=== PATIENT | male | born 1940 | race Caucasian/White ===

== ENCOUNTER → 2016-10-21 | Outpatient (CLI) | payer MEDICARE, OTHER | END | disposition home or self-care (01) | LOC: RAD 09:28 | DX: M51.36 Other intervertebral disc degeneration, lumbar region (principal); M43.16 Spondylolisthesis, lumbar region; M48.06 Spinal stenosis, lumbar region; M47.894 Other spondylosis, thoracic region; M51.04 Intervertebral disc disorders with myelopathy, thoracic region ==

== ENCOUNTER → 2016-10-26 | Outpatient (CLI) | payer MEDICARE, OTHER ==
[2016-10-26] VITALS (8 sets, daily range): BP systolic 150–185; BP diastolic 71–86
[~2016-10-26] MED LIST: 'TENORMIN50 MG PO; MOBIC7.5 MG PO; ULTRAM50 MG PO
[2016-10-26 11:43] LABS: PROTHROMBIN TIME 10.7 SECONDS (9.0-12.4)
== END | disposition home or self-care (01) ==
LOC: CT 10-18 10:00 → LAB 03:27
PROVIDERS: Orthopaedic Surgery
DX: M51.26 Other intervertebral disc displacement, lumbar region (principal); M62.58 Muscle wasting and atrophy, not elsewhere classified, other site; R53.1 Weakness; M25.551 Pain in right hip; M79.651 Pain in right thigh; M47.896 Other spondylosis, lumbar region

== ENCOUNTER → 2016-11-08 | Outpatient (CLI) | payer MEDICARE, OTHER ==
[2016-11-08 10:13] LABS: BUN 6 mg/dl (7-24); EST GLOM FILT AFRICAN AMERICAN > 60 ml/min
== END | disposition home or self-care (01) ==
LOC: LAB
PROVIDERS: Orthopaedic Surgery
DX: Z01.818 Encounter for other preprocedural examination (principal)

== ENCOUNTER → 2016-11-11 | Outpatient (CLI) | payer MEDICARE, OTHER | END | disposition home or self-care (01) | LOC: MRI 02:55 | DX: M51.26 Other intervertebral disc displacement, lumbar region (principal); R53.1 Weakness; M25.551 Pain in right hip; M79.651 Pain in right thigh ==

== ENCOUNTER 2016-12-24 15:08 | Emergency (ER) | payer MEDICARE, OTHER ==
[~2016-12-24] VITALS: Wt 71.2 kg
[2016-12-24 16:39] LABS: BASO % 0.3 % (0.0-1.0); EOS # 0.2 10*3/uL (0.0-0.4); EOS % 1.9 % (1.0-4.0); HEMATOCRIT 43.7 % (42.0-52.0); HEMOGLOBIN 15.3 g/dl (14.0-18.0); LYMPH # 2.1 10*3/uL (1.3-4.4); LYMPH % 19.4 % (27.0-41.0); MEAN CELL VOLUME 90.9 fl (80.0-94.0); MEAN CORPUSCULAR HGB 31.8 pg (27.0-31.0); MEAN PLATELET VOLUME 9.9 fl (9.6-12.3); MONO # 0.6 10*3/uL (0.1-1.0); MONO % 5.8 % (3.0-9.0); NEUT % 72.2 % (47.0-73.0); PLATELET COUNT AUTOMATED 222 10*3/uL (130-400); RED BLOOD COUNT 4.81 10*6/uL (4.50-5.90); RED CELL DISTRI WIDTH 13.2 % (0-14.5)
[2016-12-24 16:58] LABS: ALBUMIN 3.8 gm/dl (3.1-4.5); ALKALINE PHOSPHATASE 52 U/L (45-117); BUN 14 mg/dl (7-24); CHLORIDE 103 mmol/L (98-107); CREATININE 0.84 mg/dL (0.70-1.30); MAGNESIUM 2.1 mg/dL (1.5-2.1); POTASSIUM 4.1 mmol/L (3.5-5.1); SGOT/AST 17 IU/L (3-35); SGPT/ALT 23 U/L (12-78); SODIUM 138 mmol/L (136-145); TOTAL PROTEIN 6.8 gm/dL (6.4-8.2)
[2016-12-24 16:59] LABS: TROPONIN I 0.038 ng/ml (<0.045)
[2016-12-24] MEDS ORDERED: FLONASE ALLERG9.9 ML NAS (18:07)
[2016-12-24] MEDS ORDERED: CLARITIN10 MG PO (18:07)
[2016-12-24] MEDS ORDERED: PREDNISONE10 MG PO (18:07)
[2016-12-24] MEDS ORDERED: ROBITUSSIN DM 105 ML PO (18:07)
== END 2016-12-24 20:08 | disposition home or self-care (01) ==
LOC: ED 15:08
PROVIDERS: Nurse Practitioner Family
DX: B34.9 Viral infection, unspecified (principal); R03.0 Elevated blood-pressure reading, without diagnosis of hypertension; J02.9 Acute pharyngitis, unspecified; Z79.899 Other long term (current) drug therapy

== ENCOUNTER → 2018-01-17 | Outpatient (CLI) | payer MEDICARE, OTHER ==
[~2018-01-17] MED LIST changes: +CLARITIN10 MG PO; +FLONASE ALLERG9.9 ML NAS; +PREDNISONE10 MG PO; +ROBITUSSIN DM 105 ML PO
== END | disposition home or self-care (01) ==
LOC: RAD 12:17
DX: J44.9 Chronic obstructive pulmonary disease, unspecified (principal)

== ENCOUNTER → 2018-12-06 | Outpatient (CLI) | payer MEDICARE, OTHER ==
[2018-12-06 11:49] LABS: BASO # 0.1 10*3/uL (0.0-0.1); BASO % 0.6 % (0.0-1.0); EOS # 0.2 10*3/uL (0.0-0.4); HEMATOCRIT 44.5 % (42.0-52.0); LYMPH # 1.6 10*3/uL (1.3-4.4); LYMPH % 17.1 % (27.0-41.0); MEAN CORPUSCULAR HGB 30.7 pg (27.0-31.0); MEAN CORPUSCULAR HGB CONC 33.7 g/dl (33.0-37.0); MEAN PLATELET VOLUME 10.7 fl (9.6-12.3); MONO # 0.5 10*3/uL (0.1-1.0); MONO % 5.5 % (3.0-9.0); NEUT % 74.5 % (47.0-73.0); PLATELET COUNT AUTOMATED 246 10*3/uL (130-400); RED BLOOD COUNT 4.89 10*6/uL (4.50-5.90); RED CELL DISTRI WIDTH 14.6 % (0-14.5); WHITE BLOOD COUNT 9.4 10*3/uL (4.8-10.8)
[2018-12-06 12:20] LABS: ALBUMIN 3.9 gm/dl (3.1-4.5); ALKALINE PHOSPHATASE 55 U/L (45-117); BUN 11 mg/dl (7-24); CHLORIDE 107 mmol/L (98-107); CHOLESTEROL 166 mg/dL (<200); CREATININE 0.81 mg/dL (0.70-1.30); FREE T4 1.04 ng/dl (0.76-1.46); HDL CHOLESTEROL 79 mg/dl (40-60); LDL CHOLESTEROL 76 mg/dL (9-159); POTASSIUM 3.8 mmol/L (3.5-5.1); SGOT/AST 14 IU/L (3-35); SGPT/ALT 15 U/L (12-78); SODIUM 140 mmol/L (136-145); TOTAL PROTEIN 6.7 gm/dL (6.4-8.2); TRIGLYCERIDES 56 mg/dl (<150); VLDL CHOLESTEROL 11 mg/dL (6-40)
[2018-12-06 12:38] LABS: VITAMIN D, 25-HYDROXY 65.8 ng/mL (30-100)
== END | disposition home or self-care (01) ==
LOC: LAB 10:38
PROVIDERS: Internal Medicine
DX: E78.2 Mixed hyperlipidemia (principal); E55.9 Vitamin D deficiency, unspecified; D52.9 Folate deficiency anemia, unspecified; D51.9 Vitamin B12 deficiency anemia, unspecified; I10 Essential (primary) hypertension

== ENCOUNTER → 2019-06-05 | Outpatient (CLI) | payer MEDICARE, OTHER ==
[2019-06-05 15:39] LABS: BASO # 0.1 10*3/uL (0.0-0.1); BASO % 0.5 % (0.0-1.0); EOS # 0.2 10*3/uL (0.0-0.4); EOS % 1.6 % (1.0-4.0); HEMATOCRIT 48.6 % (42.0-52.0); LYMPH % 17.5 % (27.0-41.0); MEAN CELL VOLUME 93.1 fl (80.0-94.0); MEAN CORPUSCULAR HGB 30.7 pg (27.0-31.0); MEAN CORPUSCULAR HGB CONC 32.9 g/dl (33.0-37.0); MEAN PLATELET VOLUME 10.4 fl (9.6-12.3); MONO # 0.6 10*3/uL (0.1-1.0); MONO % 4.8 % (3.0-9.0); NEUT # 8.7 10*3/uL (2.3-7.9); NEUT % 75.1 % (47.0-73.0); PLATELET COUNT AUTOMATED 252 10*3/uL (130-400); RED BLOOD COUNT 5.22 10*6/uL (4.50-5.90); RED CELL DISTRI WIDTH 13.6 % (0-14.5); WHITE BLOOD COUNT 11.6 10*3/uL (4.8-10.8)
[2019-06-05 16:08] LABS: BILIRUBIN NEGATIVE (NEGATIVE); BLOOD NEGATIVE (NEGATIVE); CLARITY CLEAR (CLEAR); COLOR YELLOW (YELLOW); EPITHELIAL CELLS 0-2; GLUCOSE NEGATIVE (NEGATIVE); KETONE NEGATIVE (NEGATIVE); LEUKO ESTERASE NEGATIVE (NEGATIVE); NITRITE NEGATIVE (NEGATIVE); PH 6.5 (5.0-9.0); SPECIFIC GRAVITY 1.005 (1.005-1.030); UROBILINOGEN 0.2 E.U./dl (0.2-1.0)
[2019-06-05 16:19] LABS: ALBUMIN 4.3 gm/dl (3.1-4.5); ALKALINE PHOSPHATASE 56 U/L (45-117); BUN 10 mg/dl (7-24); CHLORIDE 106 mmol/L (98-107); CREATININE 0.96 mg/dL (0.70-1.30); POTASSIUM 3.9 mmol/L (3.5-5.1); SGOT/AST 21 IU/L (3-35); SGPT/ALT 21 U/L (12-78); SODIUM 141 mmol/L (136-145)
== END | disposition home or self-care (01) ==
LOC: LAB 15:03
PROVIDERS: Nurse Practitioner Family
DX: Z12.5 Encounter for screening for malignant neoplasm of prostate (principal); I10 Essential (primary) hypertension; D40.0 Neoplasm of uncertain behavior of prostate; R53.83 Other fatigue

== ENCOUNTER → 2019-06-19 | Outpatient (CLI) | payer MEDICARE, OTHER | END | disposition home or self-care (01) | LOC: US 11:57 | DX: N28.89 Other specified disorders of kidney and ureter (principal) ==

== ENCOUNTER → 2019-07-03 | Outpatient (CLI) | payer MEDICARE, OTHER | END | disposition home or self-care (01) | LOC: CT 00:20 | DX: N20.0 Calculus of kidney (principal); K59.00 Constipation, unspecified; M41.86 Other forms of scoliosis, lumbar region ==

== ENCOUNTER → 2019-07-11 | Outpatient (CLI) | payer MEDICARE, OTHER ==
[2019-07-13 14:07] LABS: CREATININE, RANDOM URINE 33.9 mg/dL (Not Estab.)
[2019-07-13 22:02] LABS: METANEPHRINE, PLASMA <10 pg/mL (0-62)
[2019-07-15 10:04] LABS: VMA RANDOM 1.6 mg/L (Undefined)
[2019-07-16 13:31] LABS: NORMETANEPHRINE, PLASMA 53 pg/mL (0-145)
== END | disposition home or self-care (01) ==
LOC: LAB 10:36
PROVIDERS: Nurse Practitioner Family
DX: E27.9 Disorder of adrenal gland, unspecified (principal)

== ENCOUNTER → 2019-07-13 | Outpatient (CLI) | payer MEDICARE, OTHER ==
[2019-07-17 08:03] LABS: NORMETANEPHRINE URINE 202 ug/L (Undefined); URINE METANEPHRINE 148 ug/L (Undefined); URINE METANEPHRINE, 24 HR 340 ug/24 hr (45-290); URINE NORMETANEPHRINE 24HR 465 ug/24 hr (82-500)
== END | disposition home or self-care (01) ==
LOC: LAB 09:13
PROVIDERS: Nurse Practitioner Family
DX: E27.9 Disorder of adrenal gland, unspecified (principal)

== ENCOUNTER → 2019-09-10 | Outpatient (CLI) | payer MEDICARE, OTHER | END | disposition home or self-care (01) | LOC: CT 12:24 | DX: I67.82 Cerebral ischemia (principal); I65.23 Occlusion and stenosis of bilateral carotid arteries ==

== ENCOUNTER → 2019-09-19 | Outpatient (CLI) | payer MEDICARE, OTHER | END | disposition home or self-care (01) | LOC: RAD 12:23 | DX: M17.11 Unilateral primary osteoarthritis, right knee (principal); M85.861 Other specified disorders of bone density and structure, right lower leg; M70.61 Trochanteric bursitis, right hip; Z96.641 Presence of right artificial hip joint ==

== ENCOUNTER → 2020-01-16 | Outpatient (CLI) | payer MEDICARE, OTHER ==
[2020-01-16 15:52] LABS: BASO # 0.1 10*3/uL (0.0-0.1); BASO % 0.7 % (0.0-1.0); EOS # 0.2 10*3/uL (0.0-0.4); EOS % 2.2 % (1.0-4.0); HEMATOCRIT 43.4 % (42.0-52.0); LYMPH % 19.4 % (27.0-41.0); MEAN CELL VOLUME 93.5 fl (80.0-94.0); MEAN CORPUSCULAR HGB 30.6 pg (27.0-31.0); MEAN CORPUSCULAR HGB CONC 32.7 g/dl (33.0-37.0); MEAN PLATELET VOLUME 11.2 fl (9.6-12.3); MONO # 0.7 10*3/uL (0.1-1.0); MONO % 6.7 % (3.0-9.0); NEUT # 7.1 10*3/uL (2.3-7.9); NEUT % 70.5 % (47.0-73.0); PLATELET COUNT AUTOMATED 249 10*3/uL (130-400); RED BLOOD COUNT 4.64 10*6/uL (4.50-5.90); RED CELL DISTRI WIDTH 13.9 % (0-14.5); WHITE BLOOD COUNT 10.1 10*3/uL (4.8-10.8)
[2020-01-16 16:22] LABS: ALBUMIN 3.8 gm/dl (3.1-4.5); BUN 11 mg/dl (7-24); CHLORIDE 108 mmol/L (98-107); HDL CHOLESTEROL 69 mg/dl (40-60); POTASSIUM 4.1 mmol/L (3.5-5.1); SODIUM 142 mmol/L (136-145)
[2020-01-16 16:29] LABS: VITAMIN D, 25-HYDROXY 27.9 ng/mL (30-100)
[2020-01-16 16:31] LABS: ALKALINE PHOSPHATASE 52 U/L (45-117); CHOLESTEROL 153 mg/dL (<200); CREATININE 0.85 mg/dL (0.70-1.30); FREE T4 1.17 ng/dl (0.76-1.46); LDL CHOLESTEROL 51 mg/dL (9-159); SGOT/AST 15 IU/L (3-35); SGPT/ALT 18 U/L (12-78); TOTAL PROTEIN 6.4 gm/dL (6.4-8.2); TRIGLYCERIDES 167 mg/dl (<150); VLDL CHOLESTEROL 33 mg/dL (6-40)
== END | disposition home or self-care (01) ==
LOC: LAB 13:37
PROVIDERS: ATTEND Internal Medicine
DX: Z00.00 Encounter for general adult medical examination without abnormal findings (principal); I10 Essential (primary) hypertension; E78.2 Mixed hyperlipidemia; E55.9 Vitamin D deficiency, unspecified

== ENCOUNTER 2020-03-22 09:43 | Emergency (ER) | payer MEDICARE, OTHER ==
[2020-03-22 10:47] LABS: BASO # 0.1 10*3/uL (0.0-0.1); BASO % 0.5 % (0.0-1.0); EOS # 0.2 10*3/uL (0.0-0.4); EOS % 1.9 % (1.0-4.0); HEMATOCRIT 46.1 % (42.0-52.0); LYMPH # 1.3 10*3/uL (1.3-4.4); LYMPH % 11.6 % (27.0-41.0); MEAN CELL VOLUME 90.9 fl (80.0-94.0); MEAN CORPUSCULAR HGB 30.2 pg (27.0-31.0); MEAN CORPUSCULAR HGB CONC 33.2 g/dl (33.0-37.0); MEAN PLATELET VOLUME 10.3 fl (9.6-12.3); MONO # 0.5 10*3/uL (0.1-1.0); NEUT # 8.7 10*3/uL (2.3-7.9); NEUT % 80.6 % (47.0-73.0); PLATELET COUNT AUTOMATED 304 10*3/uL (130-400); RED BLOOD COUNT 5.07 10*6/uL (4.50-5.90); RED CELL DISTRI WIDTH 13.5 % (0-14.5); WHITE BLOOD COUNT 10.8 10*3/uL (4.8-10.8)
[2020-03-22 11:14] LABS: BILIRUBIN Negative (Negative); BLOOD Negative (Negative); CLARITY Clear (Clear); COLOR Yellow (Yellow); GLUCOSE Negative (Negative); KETONE Negative (Negative); LEUKO ESTERASE Negative (Negative); NITRITE Negative (Negative); PH 7.5 (4.5-8.0); SPECIFIC GRAVITY <= 1.005 (1.001-1.030); UROBILINOGEN 0.2 E.U./dl (0.0-1.0)
[2020-03-22 11:15] LABS: ALBUMIN 3.7 gm/dl (3.1-4.5); ALKALINE PHOSPHATASE 99 U/L (45-117); BUN 11 mg/dl (7-24); CHLORIDE 108 mmol/L (98-107); CREATININE 0.83 mg/dL (0.70-1.30); LIPASE 91 U/L (73-393); SGOT/AST 17 IU/L (3-35); SGPT/ALT 17 U/L (12-78); SODIUM 140 mmol/L (136-145); TOTAL PROTEIN 6.9 gm/dL (6.4-8.2)
[2020-03-22 11:16] LABS: TROPONIN I 0.024 ng/ml (<0.045)
[2020-03-22 11:22] LABS: EPITHELIAL CELLS 0-2
[2020-03-22 11:22] LABS: THYROID STIM HORMONE (HS) 0.977 uIU/ml (0.358-4.75)
[2020-03-22] MEDS ORDERED: LEVOFLOXACIN500 MG PO (13:21)
== END 2020-03-22 13:30 | disposition home or self-care (01) ==
LOC: ED 09:43
PROVIDERS: Physician Assistant
DX: J18.9 Pneumonia, unspecified organism (principal); M79.651 Pain in right thigh; I10 Essential (primary) hypertension; M06.9 Rheumatoid arthritis, unspecified; F17.200 Nicotine dependence, unspecified, uncomplicated; Z79.899 Other long term (current) drug therapy; Z96.641 Presence of right artificial hip joint

== ENCOUNTER → 2020-03-25 | Outpatient (CLI) | payer MEDICARE, OTHER ==
[~2020-03-25] MED LIST changes: +LEVOFLOXACIN500 MG PO
== END | disposition home or self-care (01) ==
LOC: COVID19 11:15
PROVIDERS: ATTEND Internal Medicine
DX: Z20.828 Contact with and (suspected) exposure to other viral communicable diseases (principal)

== ENCOUNTER → 2020-04-07 | Outpatient (CLI) | payer MEDICARE, OTHER | END | disposition home or self-care (01) | LOC: RAD 10:24 | PROVIDERS: ATTEND Internal Medicine | DX: J18.9 Pneumonia, unspecified organism (principal); M47.814 Spondylosis without myelopathy or radiculopathy, thoracic region; M48.50XA Collapsed vertebra, not elsewhere classified, site unspecified, initial encounter for fracture ==

== ENCOUNTER → 2020-07-03 | Outpatient (CLI) | payer MEDICARE, OTHER ==
[~2020-07-03] MED LIST changes: +ESCITALOPRAM OX10 MG PO; +LISINOPRIL5 MG PO; +NAPROXEN500 MG PO
== END | disposition home or self-care (01) ==
LOC: RAD 09:43
PROVIDERS: ATTEND Internal Medicine
DX: M17.11 Unilateral primary osteoarthritis, right knee (principal)

== ENCOUNTER 2020-08-03 18:44 | Inpatient (IN) | payer MEDICARE, OTHER ==
[~2020-08-03] VITALS: Ht 167.6 cm; Wt 62.7 kg
[~2020-08-03 18:44] MED LIST changes: -ESCITALOPRAM OX10 MG PO; -LISINOPRIL5 MG PO; -NAPROXEN500 MG PO
[2020-08-03 19:16] VITALS: BP 175/66
[2020-08-03 21:24] VITALS: BP 123/61
[2020-08-04 01:12] LABS: HEMATOCRIT 45.7 % (42.0-52.0); MEAN CELL VOLUME 92.3 fl (80.0-94.0); MEAN CORPUSCULAR HGB 30.7 pg (27.0-31.0); MEAN CORPUSCULAR HGB CONC 33.3 g/dl (33.0-37.0); MEAN PLATELET VOLUME 9.9 fl (9.6-12.3); PLATELET COUNT AUTOMATED 259 10*3/uL (130-400); RED BLOOD COUNT 4.95 10*6/uL (4.50-5.90); RED CELL DISTRI WIDTH 13.9 % (0-14.5)
[2020-08-04 01:29] LABS: ALBUMIN 3.9 gm/dl (3.1-4.5); ALKALINE PHOSPHATASE 121 U/L (45-117); BUN 15 mg/dl (7-24); CHLORIDE 102 mmol/L (98-107); CREATININE 0.82 mg/dL (0.70-1.30); POTASSIUM 4.8 mmol/L (3.5-5.1); SGOT/AST 23 IU/L (3-35); SGPT/ALT 21 U/L (12-78); SODIUM 136 mmol/L (136-145); TOTAL PROTEIN 7.2 gm/dL (6.4-8.2)
[2020-08-04 02:12] LABS: PLATELET SUFFICIENCY NORMAL (NORMAL); TOTAL CELLS COUNTED 100 #CELLS
[2020-08-04 02:13] LABS: BURR CELLS FEW
[2020-08-04 05:02] VITALS: BP 163/62
[2020-08-04 06:27] VITALS: BP 164/74
[2020-08-04] MEDS ORDERED: LISINOPRIL5 MG PO (06:29)
[2020-08-04] MEDS ORDERED: NAPROXEN500 MG PO (06:29)
[2020-08-04] MEDS ORDERED: ESCITALOPRAM OX10 MG PO (06:31)
[2020-08-04 12:00] VITALS: BP 148/65
[2020-08-04 20:00] VITALS: BP 163/68
[2020-08-05] VITALS: BP 156/75
[2020-08-05 08:05] VITALS: BP 159/69
[2020-08-05 12:29] VITALS: BP 170/67
[2020-08-05 13:40] VITALS: BP 158/62
[2020-08-05 16:29] VITALS: BP 180/75
[2020-08-05 20:00] VITALS: BP 176/75
[2020-08-06] VITALS: BP 180/74
[2020-08-06 08:43] VITALS: BP 170/82
[2020-08-06 12:17] VITALS: BP 174/65
[2020-08-06 16:35] VITALS: BP 112/61
[2020-08-06 20:00] VITALS: BP 148/80
[2020-08-07 08:00] VITALS: BP 179/82
[2020-08-07 16:00] VITALS: BP 168/77
[2020-08-08] MEDS ORDERED: HYDROCODONE-AC1 EAC1 PO (15:51)
== END 2020-08-07 17:55 | DRG 552 ==
LOC: ED 18:44 → EDHOLD 08-04 04:07 → 5E 08-04 04:07 → EDHOLD 08-04 04:07 → 5E 08-04 08:47
PROVIDERS: Physician Assistant; ADMIT Internal Medicine; ATTEND Internal Medicine
DX: M48.56XS Collapsed vertebra, not elsewhere classified, lumbar region, sequela of fracture (principal); F33.9 Major depressive disorder, recurrent, unspecified; M19.90 Unspecified osteoarthritis, unspecified site; I10 Essential (primary) hypertension; Z82.49 Family history of ischemic heart disease and other diseases of the circulatory system; S30.0XXA Contusion of lower back and pelvis, initial encounter; M19.09 Primary osteoarthritis, other specified site; R62.7 Adult failure to thrive; M48.061 Spinal stenosis, lumbar region without neurogenic claudication; Z20.822 Contact with and (suspected) exposure to COVID-19; Z68.22 Body mass index [BMI] 22.0-22.9, adult; M06.9 Rheumatoid arthritis, unspecified; X58.XXXA Exposure to other specified factors, initial encounter; Y93.89 Activity, other specified; Y92.89 Other specified places as the place of occurrence of the external cause; Y99.8 Other external cause status

== ENCOUNTER 2020-08-08 09:05 | Emergency (ER) | payer MEDICARE, OTHER ==
[~2020-08-08] VITALS: Ht 167.6 cm; Wt 60.5 kg
[~2020-08-08 09:05] MED LIST changes: +ESCITALOPRAM OX10 MG PO; +LISINOPRIL5 MG PO; +NAPROXEN500 MG PO
[2020-08-08 10:14] LABS: HEMATOCRIT 48.7 % (42.0-52.0); MEAN CELL VOLUME 90.2 fl (80.0-94.0); MEAN CORPUSCULAR HGB 30.2 pg (27.0-31.0); MEAN CORPUSCULAR HGB CONC 33.5 g/dl (33.0-37.0); MEAN PLATELET VOLUME 9.9 fl (9.6-12.3); PLATELET COUNT AUTOMATED 357 10*3/uL (130-400); RED CELL DISTRI WIDTH 13.2 % (0-14.5); WHITE BLOOD COUNT 17.5 10*3/uL (4.8-10.8)
[2020-08-08 10:25] LABS: ACT PARTIAL THROMBO TIME 28.7 SECONDS (20.0-32.1); INTERNATIONAL NORM RATIO 1.1 (2.0-3.5)
[2020-08-08 10:29] LABS: ALBUMIN 3.5 gm/dl (3.1-4.5); ALKALINE PHOSPHATASE 130 U/L (45-117); BUN 16 mg/dl (7-24); CHLORIDE 99 mmol/L (98-107); CREATININE 0.75 mg/dL (0.70-1.30); LIPASE 63 U/L (73-393); POTASSIUM 3.9 mmol/L (3.5-5.1); SGOT/AST 24 IU/L (3-35); SGPT/ALT 29 U/L (12-78); SODIUM 134 mmol/L (136-145); TOTAL PROTEIN 6.9 gm/dL (6.4-8.2)
[2020-08-08 10:35] LABS: TROPONIN I < 0.015 ng/ml (<0.045)
[2020-08-08 10:38] LABS: PLATELET SUFFICIENCY NORMAL (NORMAL); TOTAL CELLS COUNTED 100 #CELLS
[2020-08-08 11:32] LABS: BILIRUBIN Negative (Negative); BLOOD Negative (Negative); CLARITY Clear (Clear); COLOR Yellow (Yellow); GLUCOSE Negative (Negative); KETONE 1+ (Negative); LEUKO ESTERASE Negative (Negative); NITRITE Negative (Negative); SPECIFIC GRAVITY 1.015 (1.001-1.030)
[2020-08-08 11:54] LABS: MUCOUS TRACE; RBC 0-2 rbc/hpf (0-2); WBC 0-2 wbc/hpf (0-5)
[2020-08-08] MEDS ORDERED: HYDROCODONE-AC1 EAC1 PO (15:51)
== END 2020-08-08 16:46 ==
LOC: ED 09:05
PROVIDERS: Emergency Medicine
DX: M54.5 Low back pain (principal); F17.200 Nicotine dependence, unspecified, uncomplicated; Z79.899 Other long term (current) drug therapy

== ENCOUNTER 2021-06-22 13:18 | Inpatient (IN) | payer MEDICARE, OTHER ==
[~2021-06-22] VITALS: Ht 167.6 cm; Wt 77.4 kg
[~2021-06-22 13:18] MED LIST changes: +AMLODIPINE BES2.5 MG PO; +ATENOLOL25 MG PO; +DULCOLAX STOOL100 M1 PO; +HALOPERIDOL1 MG PO; +HYDROCODONE-AC1 EAC1 PO; +HYDROXYZINE PAM50 MG PO; +MEGESTROL400 MG/10 PO; +MELOXICAM15 MG PO; +MEMANTINE HCL10 MG PO; +MIRTAZAPINE15 M2 PO; +MIRTAZAPINE30 M2 PO; +MIRTAZAPINE7.5 MG PO; +NAMENDA-5 PO; +NAMENDA5 M1 PO; +OLANZAPINE2.5 MG PO; +OLANZAPINE5 MG PO; +PROTEIN PO; +REMERON15 M2 PO; +RIVASTIGMINE T4.5 M1 PO; +RIVASTIGMINE1 EAC2 T; +TRAZODONE100 MG PO; +TYLENOL EXTRA500 MG PO; +VISTARIL50 MG PO; +ZYPREXA2.5 MG PO
[2021-06-22 13:20] VITALS: BP 169/77
[2021-06-22 13:58] LABS: BASO % 0.1 % (0.0-1.0); EOS # 0.1 10*3/uL (0.0-0.4); EOS % 0.5 % (1.0-4.0); HEMATOCRIT 44.2 % (42.0-52.0); LYMPH # 0.7 10*3/uL (1.3-4.4); LYMPH % 4.8 % (27.0-41.0); MEAN CELL VOLUME 94.4 fl (80.0-94.0); MEAN CORPUSCULAR HGB 30.6 pg (27.0-31.0); MEAN CORPUSCULAR HGB CONC 32.4 g/dl (33.0-37.0); MEAN PLATELET VOLUME 10.2 fl (9.6-12.3); MONO # 0.7 10*3/uL (0.1-1.0); MONO % 5.1 % (3.0-9.0); NEUT # 12.2 10*3/uL (2.3-7.9); NEUT % 89.1 % (47.0-73.0); PLATELET COUNT AUTOMATED 224 10*3/uL (130-400); RED BLOOD COUNT 4.68 10*6/uL (4.50-5.90); RED CELL DISTRI WIDTH 14.6 % (0-14.5); WHITE BLOOD COUNT 13.7 10*3/uL (4.8-10.8)
[2021-06-22 15:14] LABS: ALKALINE PHOSPHATASE 78 U/L (45-117); BUN 20 mg/dl (7-24); CHLORIDE 108 mmol/L (98-107); LIPASE 64 U/L (73-393); POTASSIUM 3.8 mmol/L (3.5-5.1); SGOT/AST 13 IU/L (3-35); SGPT/ALT 17 U/L (12-78); SODIUM 141 mmol/L (136-145); TOTAL PROTEIN 7.1 gm/dL (6.4-8.2)
[2021-06-22 16:07] LABS: BILIRUBIN 1+ (Negative); BLOOD 2+ (Negative); CLARITY Cloudy (Clear); COLOR Dark Yellow (Yellow); GLUCOSE Negative (Negative); KETONE Trace (Negative); LEUKO ESTERASE Negative (Negative); NITRITE Negative (Negative); PH 5.5 (4.5-8.0); SPECIFIC GRAVITY >= 1.030 (1.001-1.030)
[2021-06-22 17:05] LABS: EPITHELIAL CELLS 0-2; RBC TNTC rbc/hpf (0-2); WBC 0-2 wbc/hpf (0-5)
[2021-06-22 17:06] LABS: BACTERIA 2+; CALCIUM OXALATE CRYSTALS 2+; HYALINE CAST 0-2; MUCOUS 1+
[2021-06-22] MEDS ORDERED: NEURONTIN300 MG PO (18:23)
[2021-06-22] MEDS ORDERED: METOPROLOL25 MG PO (18:24)
[2021-06-22] MEDS ORDERED: TOLTERODINE TART2 M3 PO (18:24)
[2021-06-22 18:40] VITALS: BP 152/80
[2021-06-22 19:45] VITALS: BP 176/82
[2021-06-23] VITALS: BP 147/61
[2021-06-23 06:20] LABS: BASO % 0.2 % (0.0-1.0); EOS # 0.3 10*3/uL (0.0-0.4); EOS % 2.9 % (1.0-4.0); HEMATOCRIT 37.9 % (42.0-52.0); LYMPH # 1.2 10*3/uL (1.3-4.4); LYMPH % 12.2 % (27.0-41.0); MEAN CELL VOLUME 93.8 fl (80.0-94.0); MEAN CORPUSCULAR HGB 30.2 pg (27.0-31.0); MEAN CORPUSCULAR HGB CONC 32.2 g/dl (33.0-37.0); MEAN PLATELET VOLUME 10.4 fl (9.6-12.3); MONO # 0.6 10*3/uL (0.1-1.0); NEUT # 7.9 10*3/uL (2.3-7.9); NEUT % 78.3 % (47.0-73.0); PLATELET COUNT AUTOMATED 186 10*3/uL (130-400); RED BLOOD COUNT 4.04 10*6/uL (4.50-5.90); RED CELL DISTRI WIDTH 14.5 % (0-14.5); WHITE BLOOD COUNT 10.1 10*3/uL (4.8-10.8)
[2021-06-23 06:45] LABS: BUN 12 mg/dl (7-24); CHLORIDE 109 mmol/L (98-107); POTASSIUM 3.4 mmol/L (3.5-5.1); SGPT/ALT 15 U/L (12-78); SODIUM 141 mmol/L (136-145)
[2021-06-23 06:56] LABS: ALKALINE PHOSPHATASE 71 U/L (45-117); CREATININE 0.84 mg/dL (0.70-1.30); SGOT/AST 11 IU/L (3-35); THYROID STIM HORMONE (HS) 0.676 uIU/ml (0.358-4.75); TOTAL PROTEIN 6.4 gm/dL (6.4-8.2)
[2021-06-23 08:00] VITALS: BP 135/90
[2021-06-23 12:00] VITALS: BP 146/70
[2021-06-23 15:21] VITALS: BP 141/61
== END 2021-06-23 15:53 | DRG 312 ==
LOC: ED 13:18 → 5E 15:57 → EDHOLD 15:57 → 5E 17:37
PROVIDERS: Emergency Medicine; Family Medicine; ADMIT Student in an Organized Health Care Education/Training Program; ATTEND Student in an Organized Health Care Education/Training Program
DX: I95.1 Orthostatic hypotension (principal); E87.2 Acidosis; I50.32 Chronic diastolic (congestive) heart failure; N30.01 Acute cystitis with hematuria; M54.50 Low back pain, unspecified; Z20.822 Contact with and (suspected) exposure to COVID-19; R73.9 Hyperglycemia, unspecified; I11.0 Hypertensive heart disease with heart failure; F41.9 Anxiety disorder, unspecified; F03.90 Unspecified dementia, unspecified severity, without behavioral disturbance, psychotic disturbance, mood disturbance, and anxiety; E78.2 Mixed hyperlipidemia; G89.29 Other chronic pain; E86.0 Dehydration; Z79.1 Long term (current) use of non-steroidal anti-inflammatories (NSAID); Z79.899 Other long term (current) drug therapy

== ENCOUNTER → 2021-12-04 | Day surgery (SDC) | payer MEDICARE, OTHER ==
[2021-11-30 13:18] VITALS: BP 157/70
[2021-11-30 14:21] LABS: BASO % 0.3 % (0.0-1.0); EOS # 0.3 10*3/uL (0.0-0.4); EOS % 3.1 % (1.0-4.0); HEMATOCRIT 41.9 % (42.0-52.0); LYMPH # 1.9 10*3/uL (1.3-4.4); LYMPH % 19.2 % (27.0-41.0); MEAN CELL VOLUME 90.3 fl (80.0-94.0); MEAN CORPUSCULAR HGB 30.4 pg (27.0-31.0); MEAN CORPUSCULAR HGB CONC 33.7 g/dl (33.0-37.0); MONO # 0.7 10*3/uL (0.1-1.0); MONO % 7.3 % (3.0-9.0); NEUT # 6.8 10*3/uL (2.3-7.9); NEUT % 69.6 % (47.0-73.0); PLATELET COUNT AUTOMATED 222 10*3/uL (130-400); RED BLOOD COUNT 4.64 10*6/uL (4.50-5.90); RED CELL DISTRI WIDTH 14.7 % (0-14.5); WHITE BLOOD COUNT 9.8 10*3/uL (4.8-10.8)
[2021-11-30 14:40] LABS: BUN 14 mg/dl (7-24); CHLORIDE 107 mmol/L (98-107); CREATININE 1.02 mg/dL (0.70-1.30); POTASSIUM 4.3 mmol/L (3.5-5.1); SODIUM 140 mmol/L (136-145)
[~2021-12-04] VITALS: Ht 170.1 cm; Wt 77.1 kg
[~2021-12-04] MED LIST changes: +COLACE100 MG PO; +METOPROLOL25 MG PO; +NEURONTIN300 MG PO; +ONDANSETRON HYDR4 M1 PO; +PERCOCET 5-3251 EACH PO; +TOLTERODINE TART2 M3 PO
[2021-12-04 09:34] VITALS: BP 159/71
[2021-12-04 09:49] VITALS: BP 165/74
[2021-12-04 10:04] VITALS: BP 172/60
[2021-12-04 10:19] VITALS: BP 177/79
[2021-12-04 10:34] VITALS: BP 173/75
[2021-12-04 10:49] VITALS: BP 184/75
== END | disposition home or self-care (01) ==
LOC: SDC 11-30 14:00
PROVIDERS: ATTEND Surgery
DX: K40.30 Unilateral inguinal hernia, with obstruction, without gangrene, not specified as recurrent (principal); I10 Essential (primary) hypertension; M06.9 Rheumatoid arthritis, unspecified; Z79.899 Other long term (current) drug therapy

== ENCOUNTER 2022-01-08 00:19 | Emergency (ER) | payer MEDICARE, OTHER ==
[~2022-01-08] VITALS: Ht 170.1 cm; Wt 81.6 kg
[2022-01-08] MEDS ORDERED: ANTI-DIARRHEAL2 MG PO (00:34)
[2022-01-08 00:48] LABS: HEMATOCRIT 39.2 % (42.0-52.0); MEAN CELL VOLUME 93.1 fl (80.0-94.0); MEAN CORPUSCULAR HGB 30.9 pg (27.0-31.0); MEAN CORPUSCULAR HGB CONC 33.2 g/dl (33.0-37.0); PLATELET COUNT AUTOMATED 218 10*3/uL (130-400); RED BLOOD COUNT 4.21 10*6/uL (4.50-5.90); RED CELL DISTRI WIDTH 13.8 % (0-14.5); WHITE BLOOD COUNT 10.3 10*3/uL (4.8-10.8)
[2022-01-08 00:49] LABS: MANUAL DIFF REFLEX YES
[2022-01-08 01:04] LABS: ALKALINE PHOSPHATASE 83 U/L (45-117); BUN 15 mg/dl (7-24); CHLORIDE 108 mmol/L (98-107); CREATININE 0.95 mg/dL (0.70-1.30); SGOT/AST 17 IU/L (3-35); SGPT/ALT 17 U/L (12-78); SODIUM 138 mmol/L (136-145)
[2022-01-08 01:06] LABS: BILIRUBIN Negative (Negative); BLOOD Negative (Negative); COLOR Yellow (Yellow); GLUCOSE Negative (Negative); KETONE Negative (Negative); LEUKO ESTERASE Negative (Negative); NITRITE Negative (Negative); UROBILINOGEN 0.2 E.U./dl (0.0-1.0)
[2022-01-08 01:09] LABS: BASOPHILS 1 % (0-1); TOTAL CELLS COUNTED 100 #CELLS
[2022-01-08 01:10] LABS: PLATELET SUFFICIENCY NORMAL (NORMAL)
[2022-01-08 01:20] LABS: CLARITY Clear (Clear); RBC 0-2 rbc/hpf (0-2); WBC 0-2 wbc/hpf (0-5)
[2022-01-08] MEDS ORDERED: LEVOFLOXACIN750 M2 PO (01:28)
== END 2022-01-08 05:38 ==
LOC: ED 00:19
PROVIDERS: Emergency Medicine
DX: J18.9 Pneumonia, unspecified organism (principal); Z20.822 Contact with and (suspected) exposure to COVID-19; Z79.899 Other long term (current) drug therapy

== ENCOUNTER 2022-01-26 04:27 | Inpatient (IN) | payer MEDICARE, OTHER ==
[2022-01-26] VITALS (12 sets, daily range): BP systolic 97–182; BP diastolic 44–96
[~2022-01-26] VITALS: Ht 167.6 cm; Wt 77.7 kg
[~2022-01-26 04:27] MED LIST changes: +ANTI-DIARRHEAL2 MG PO; +LEVOFLOXACIN750 M2 PO
[2022-01-26 05:33] LABS: ALKALINE PHOSPHATASE 76 U/L (45-117); BUN 13 mg/dl (7-24); CHLORIDE 109 mmol/L (98-107); CREATININE 0.94 mg/dL (0.70-1.30); POTASSIUM 4.3 mmol/L (3.5-5.1); SGOT/AST 21 IU/L (3-35); SGPT/ALT 19 U/L (12-78); SODIUM 143 mmol/L (136-145); TOTAL PROTEIN 6.9 gm/dL (6.4-8.2)
[2022-01-26 06:09] LABS: BASO # 0.1 10*3/uL (0.0-0.1); BASO % 0.4 % (0.0-1.0); EOS # 0.3 10*3/uL (0.0-0.4); EOS % 2.3 % (1.0-4.0); HEMATOCRIT 39.2 % (42.0-52.0); LYMPH # 1.3 10*3/uL (1.3-4.4); LYMPH % 11.8 % (27.0-41.0); MEAN CELL VOLUME 94.7 fl (80.0-94.0); MEAN CORPUSCULAR HGB 31.4 pg (27.0-31.0); MEAN CORPUSCULAR HGB CONC 33.2 g/dl (33.0-37.0); MEAN PLATELET VOLUME 10.4 fl (9.6-12.3); MONO # 0.6 10*3/uL (0.1-1.0); MONO % 5.6 % (3.0-9.0); NEUT # 8.9 10*3/uL (2.3-7.9); NEUT % 78.3 % (47.0-73.0); PLATELET COUNT AUTOMATED 237 10*3/uL (130-400); RED BLOOD COUNT 4.14 10*6/uL (4.50-5.90); RED CELL DISTRI WIDTH 13.7 % (0-14.5); WHITE BLOOD COUNT 11.3 10*3/uL (4.8-10.8)
[2022-01-26] MEDS ORDERED: MULTI-VITAMIN1 EACH PO (15:48)
[2022-01-26] MEDS ORDERED: VITAMIN D250 MC1 PO (15:54)
[2022-01-27] VITALS: BP 162/67
[2022-01-27 07:13] LABS: BASO % 0.1 % (0.0-1.0); HEMATOCRIT 30.5 % (42.0-52.0); LYMPH # 1.3 10*3/uL (1.3-4.4); MEAN CELL VOLUME 93.3 fl (80.0-94.0); MEAN CORPUSCULAR HGB 31.5 pg (27.0-31.0); MEAN CORPUSCULAR HGB CONC 33.8 g/dl (33.0-37.0); MEAN PLATELET VOLUME 10.5 fl (9.6-12.3); MONO # 1.5 10*3/uL (0.1-1.0); MONO % 7.8 % (3.0-9.0); NEUT # 16.1 10*3/uL (2.3-7.9); NEUT % 84.5 % (47.0-73.0); PLATELET COUNT AUTOMATED 200 10*3/uL (130-400); RED BLOOD COUNT 3.27 10*6/uL (4.50-5.90); RED CELL DISTRI WIDTH 13.6 % (0-14.5)
[2022-01-27 07:24] LABS: ACT PARTIAL THROMBO TIME 28.5 SECONDS (20.0-32.1)
[2022-01-27 07:38] LABS: ALKALINE PHOSPHATASE 68 U/L (45-117); CHLORIDE 111 mmol/L (98-107); CREATININE 1.29 mg/dL (0.70-1.30); POTASSIUM 4.3 mmol/L (3.5-5.1); SGOT/AST 46 IU/L (3-35); SGPT/ALT 20 U/L (12-78); SODIUM 143 mmol/L (136-145); TOTAL PROTEIN 6.3 gm/dL (6.4-8.2)
[2022-01-27 07:43] LABS: BUN 28 mg/dl (7-24)
[2022-01-27 08:00] VITALS: BP 135/66
[2022-01-27 12:00] VITALS: BP 118/77
[2022-01-27 16:00] VITALS: BP 117/74
[2022-01-27 20:00] VITALS: BP 141/63
[2022-01-28] VITALS (8 sets, daily range): BP systolic 85–165; BP diastolic 43–84
[2022-01-29] VITALS: BP 147/58
[2022-01-29 06:29] LABS: BASO % 0.4 % (0.0-1.0); EOS # 0.3 10*3/uL (0.0-0.4); EOS % 3.5 % (1.0-4.0); HEMATOCRIT 27.9 % (42.0-52.0); LYMPH # 1.8 10*3/uL (1.3-4.4); MEAN CELL VOLUME 96.2 fl (80.0-94.0); MEAN CORPUSCULAR HGB CONC 32.3 g/dl (33.0-37.0); MEAN PLATELET VOLUME 10.8 fl (9.6-12.3); MONO # 0.8 10*3/uL (0.1-1.0); MONO % 8.1 % (3.0-9.0); NEUT # 6.6 10*3/uL (2.3-7.9); NEUT % 68.6 % (47.0-73.0); PLATELET COUNT AUTOMATED 175 10*3/uL (130-400); WHITE BLOOD COUNT 9.7 10*3/uL (4.8-10.8)
[2022-01-29 06:44] LABS: CHLORIDE 115 mmol/L (98-107); CREATININE 0.78 mg/dL (0.70-1.30); POTASSIUM 3.8 mmol/L (3.5-5.1); SODIUM 146 mmol/L (136-145)
[2022-01-29 07:19] LABS: BUN 18 mg/dl (7-24)
[2022-01-29 08:00] VITALS: BP 132/56
[2022-01-29] MEDS ORDERED: ASPIRIN CHILDRE81 MG PO (11:54)
[2022-01-29] MEDS ORDERED: NEURONTIN300 MG PO (11:56)
[2022-01-29] MEDS ORDERED: HYDROCODONE-AC1 EAC1 PO (11:56)
[2022-01-29 12:00] VITALS: BP 137/66
[2022-01-29 16:00] VITALS: BP 149/65
== END 2022-01-29 16:55 | DRG 481 ==
LOC: ED 04:27 → 5E 06:50 → EDHOLD 06:50 → 5E 15:16
PROVIDERS: Emergency Medicine; Internal Medicine; Student in an Organized Health Care Education/Training Program; ADMIT Internal Medicine; ATTEND Internal Medicine
PROC: 0QH704Z Insertion of Internal Fixation Device into Left Upper Femur, Open Approach (ICD-10-PCS; principal; 2022-01-26)
PROC: 3E0T3BZ Introduction of Anesthetic Agent into Peripheral Nerves and Plexi, Percutaneous Approach (ICD-10-PCS; 2022-01-26)
PROC: 3E0T33Z Introduction of Anti-inflammatory into Peripheral Nerves and Plexi, Percutaneous Approach (ICD-10-PCS; 2022-01-26)
DX: S72.142A Displaced intertrochanteric fracture of left femur, initial encounter for closed fracture (principal); E44.1 Mild protein-calorie malnutrition; I50.30 Unspecified diastolic (congestive) heart failure; Z20.822 Contact with and (suspected) exposure to COVID-19; Z96.641 Presence of right artificial hip joint; F03.90 Unspecified dementia, unspecified severity, without behavioral disturbance, psychotic disturbance, mood disturbance, and anxiety; I11.0 Hypertensive heart disease with heart failure; E78.2 Mixed hyperlipidemia; S51.011A Laceration without foreign body of right elbow, initial encounter; Z66 Do not resuscitate; G62.9 Polyneuropathy, unspecified; W18.39XA Other fall on same level, initial encounter; Z51.5 Encounter for palliative care; Y93.89 Activity, other specified; Y92.89 Other specified places as the place of occurrence of the external cause; Y99.8 Other external cause status; Z68.27 Body mass index [BMI] 27.0-27.9, adult

== ENCOUNTER → 2022-02-12 | Outpatient (CLI) | payer MEDICARE, OTHER ==
[~2022-02-12] MED LIST changes: +ASPIRIN CHILDRE81 MG PO; +MULTI-VITAMIN1 EACH PO; +VITAMIN D250 MC1 PO
== END ==
LOC: ORTHO 01:04
PROVIDERS: ATTEND Orthopaedic Surgery
DX: S72.002D Fracture of unspecified part of neck of left femur, subsequent encounter for closed fracture with routine healing (principal); X58.XXXD Exposure to other specified factors, subsequent encounter

== ENCOUNTER → 2022-03-12 | Outpatient (CLI) | payer MEDICARE, OTHER | END | disposition home or self-care (01) | LOC: ORTHO 01:22 | PROVIDERS: ATTEND Orthopaedic Surgery | DX: S72.142D Displaced intertrochanteric fracture of left femur, subsequent encounter for closed fracture with routine healing (principal); S72.002D Fracture of unspecified part of neck of left femur, subsequent encounter for closed fracture with routine healing; Z98.890 Other specified postprocedural states; X58.XXXD Exposure to other specified factors, subsequent encounter ==

== ENCOUNTER → 2022-05-14 | Outpatient (CLI) | payer MEDICARE, OTHER ==
[~2022-05-14] MED LIST changes: +CEFTRIAXON1 GM/50 ML IV; +DULCOLAX STOOL100 MG PO; +GENTLE LAXATIVE5 M1 PO; +KEPPRA250 MG PO; +METHOCARBAMOL500 M1 PO; +MILK OF MA400 MG/52 PO; +MIRALAX POWDER17 G1 PO; +STIMULANT LAXA1 EACH PO; +TOPCARE 8 HOUR650 MG PO
== END | disposition home or self-care (01) ==
LOC: ORTHO 00:53
PROVIDERS: ATTEND Orthopaedic Surgery
DX: S72.142D Displaced intertrochanteric fracture of left femur, subsequent encounter for closed fracture with routine healing (principal); X58.XXXD Exposure to other specified factors, subsequent encounter

== ENCOUNTER 2022-08-22 15:31 | Emergency (ER) | payer MEDICARE, OTHER ==
[~2022-08-22] VITALS: Ht 170.1 cm; Wt 68.0 kg
[~2022-08-22 15:31] MED LIST changes: +OMNICEF300 MG PO; +ZITHROMAX500 MG PO
== END 2022-08-22 19:26 | disposition home or self-care (01) ==
LOC: ED 15:31
DX: M25.551 Pain in right hip (principal); I10 Essential (primary) hypertension; M19.90 Unspecified osteoarthritis, unspecified site; Z98.890 Other specified postprocedural states; Z90.89 Acquired absence of other organs

== ENCOUNTER 2022-10-03 12:58 | Emergency (ER) | payer MEDICARE, OTHER ==
[2022-10-03 13:24] LABS: BASO % 0.3 % (0.0-1.0); EOS # 0.2 10*3/uL (0.0-0.4); EOS % 2.1 % (1.0-4.0); HEMATOCRIT 43.3 % (42.0-52.0); LYMPH % 11.1 % (27.0-41.0); MEAN CELL VOLUME 93.5 fl (80.0-94.0); MEAN CORPUSCULAR HGB 29.8 pg (27.0-31.0); MEAN CORPUSCULAR HGB CONC 31.9 g/dl (33.0-37.0); MEAN PLATELET VOLUME 9.6 fl (9.6-12.3); MONO # 0.4 10*3/uL (0.1-1.0); MONO % 4.3 % (3.0-9.0); NEUT # 7.5 10*3/uL (2.3-7.9); PLATELET COUNT AUTOMATED 202 10*3/uL (130-400); RED BLOOD COUNT 4.63 10*6/uL (4.50-5.90); RED CELL DISTRI WIDTH 13.2 % (0-14.5); WHITE BLOOD COUNT 9.2 10*3/uL (4.8-10.8)
[2022-10-03] MEDS ORDERED: CLARITIN10 MG PO (13:25)
[2022-10-03 13:56] LABS: ALKALINE PHOSPHATASE 87 U/L (46-116); BUN 8 mg/dl (9-23); CHLORIDE 104 mmol/L (98-107); LIPASE 33 U/L (12-53); POTASSIUM 4.1 mmol/L (3.4-5.1); SGPT/ALT 8 U/L (10-49); TOTAL PROTEIN 6.7 gm/dL (6.0-8.0)
[2022-10-03 14:01] LABS: ACT PARTIAL THROMBO TIME 30.7 SECONDS (20.0-32.1); INTERNATIONAL NORM RATIO 1.1 (2.0-3.5)
== END 2022-10-03 20:37 | disposition short-term general hospital (02) ==
LOC: ED 12:58
PROVIDERS: Emergency Medicine
DX: R55 Syncope and collapse (principal); G91.2 (Idiopathic) normal pressure hydrocephalus; R00.1 Bradycardia, unspecified; I10 Essential (primary) hypertension; M19.90 Unspecified osteoarthritis, unspecified site; Z90.89 Acquired absence of other organs; Z98.890 Other specified postprocedural states

== ENCOUNTER 2022-10-07 04:00 | Emergency (ER) | payer MEDICARE, OTHER ==
[~2022-10-07] VITALS: Ht 175.2 cm; Wt 78.0 kg
[2022-10-07] MEDS ORDERED: METHOCARBAMOL500 M1 PO (04:17)
[2022-10-07] MEDS ORDERED: PANTOPRAZOLE SO40 MG PO (04:17)
[2022-10-07 05:08] LABS: BUN 8 mg/dl (9-23); CHLORIDE 107 mmol/L (98-107); CPK 86 U/L (34-171); POTASSIUM 3.2 mmol/L (3.4-5.1)
[2022-10-07 06:06] LABS: BASO % 0.3 % (0.0-1.0); EOS # 0.2 10*3/uL (0.0-0.4); EOS % 1.3 % (1.0-4.0); HEMATOCRIT 37.7 % (42.0-52.0); LYMPH % 8.7 % (27.0-41.0); MEAN CELL VOLUME 90.6 fl (80.0-94.0); MEAN CORPUSCULAR HGB 30.3 pg (27.0-31.0); MEAN CORPUSCULAR HGB CONC 33.4 g/dl (33.0-37.0); MEAN PLATELET VOLUME 10.6 fl (9.6-12.3); MONO # 0.8 10*3/uL (0.1-1.0); MONO % 6.6 % (3.0-9.0); NEUT # 9.6 10*3/uL (2.3-7.9); NEUT % 81.1 % (47.0-73.0); PLATELET COUNT AUTOMATED 224 10*3/uL (130-400); RED BLOOD COUNT 4.16 10*6/uL (4.50-5.90); RED CELL DISTRI WIDTH 13.3 % (0-14.5); WHITE BLOOD COUNT 11.8 10*3/uL (4.8-10.8)
== END 2022-10-07 05:55 ==
LOC: ED 04:00
PROVIDERS: Internal Medicine
DX: S51.811A Laceration without foreign body of right forearm, initial encounter (principal); I10 Essential (primary) hypertension; M19.90 Unspecified osteoarthritis, unspecified site; F41.9 Anxiety disorder, unspecified; F03.90 Unspecified dementia, unspecified severity, without behavioral disturbance, psychotic disturbance, mood disturbance, and anxiety; E87.6 Hypokalemia; Z90.89 Acquired absence of other organs; Z98.890 Other specified postprocedural states; W19.XXXA Unspecified fall, initial encounter; Y93.89 Activity, other specified; Y92.129 Unspecified place in nursing home as the place of occurrence of the external cause; Y99.8 Other external cause status

== ENCOUNTER 2023-03-14 22:16 | Emergency (ER) | payer MEDICARE, OTHER ==
[~2023-03-14] VITALS: Ht 167.6 cm; Wt 72.2 kg
[~2023-03-14 22:16] MED LIST changes: +PANTOPRAZOLE SO40 MG PO
[2023-03-14 22:58] LABS: BASO # 0.1 10*3/uL (0.0-0.1); BASO % 0.7 % (0.0-1.0); EOS # 0.4 10*3/uL (0.0-0.4); EOS % 4.5 % (1.0-4.0); HEMATOCRIT 40.8 % (42.0-52.0); LYMPH # 1.7 10*3/uL (1.3-4.4); LYMPH % 20.9 % (27.0-41.0); MEAN CELL VOLUME 92.7 fl (80.0-94.0); MEAN CORPUSCULAR HGB 30.5 pg (27.0-31.0); MEAN CORPUSCULAR HGB CONC 32.8 g/dl (33.0-37.0); MEAN PLATELET VOLUME 10.5 fl (9.6-12.3); MONO # 0.6 10*3/uL (0.1-1.0); MONO % 7.4 % (3.0-9.0); NEUT # 5.3 10*3/uL (2.3-7.9); NEUT % 66.3 % (47.0-73.0); PLATELET COUNT AUTOMATED 219 10*3/uL (130-400); RED CELL DISTRI WIDTH 15.4 % (0-14.5)
[2023-03-14 23:10] LABS: ACT PARTIAL THROMBO TIME 28.1 SECONDS (20.0-32.1)
[2023-03-14 23:26] LABS: ALKALINE PHOSPHATASE 63 U/L (46-116); BUN 9 mg/dl (9-23); CHLORIDE 109 mmol/L (98-107); POTASSIUM 4.2 mmol/L (3.4-5.1); TOTAL PROTEIN 6.4 gm/dL (6.0-8.0)
[2023-03-14 23:31] LABS: SGPT/ALT < 7 U/L (5-49)
[2023-03-15] MEDS ORDERED: AMOX-CLAV 875-1 EACH PO (00:08)
== END 2023-03-15 00:27 | disposition home or self-care (01) ==
LOC: ED 22:16
PROVIDERS: Internal Medicine
DX: J40 Bronchitis, not specified as acute or chronic (principal); F03.90 Unspecified dementia, unspecified severity, without behavioral disturbance, psychotic disturbance, mood disturbance, and anxiety; M19.90 Unspecified osteoarthritis, unspecified site; R10.2 Pelvic and perineal pain; Z90.89 Acquired absence of other organs; Z98.890 Other specified postprocedural states

== ENCOUNTER 2023-03-17 13:21 | Emergency (ER) | payer MEDICARE, OTHER ==
[~2023-03-17] VITALS: Wt 72.1 kg
[~2023-03-17 13:21] MED LIST changes: +AMOX-CLAV 875-1 EACH PO
[2023-03-17] MEDS ORDERED: LEVETIRACETAM250 MG PO (13:46)
[2023-03-17] MEDS ORDERED: LEVETIRACETAM500 MG PO (13:46)
[2023-03-17 14:02] LABS: BASO % 0.2 % (0.0-1.0); EOS % 0.4 % (1.0-4.0); HEMATOCRIT 40.7 % (42.0-52.0); LYMPH # 0.7 10*3/uL (1.3-4.4); LYMPH % 6.7 % (27.0-41.0); MEAN CELL VOLUME 92.9 fl (80.0-94.0); MEAN CORPUSCULAR HGB 30.4 pg (27.0-31.0); MEAN CORPUSCULAR HGB CONC 32.7 g/dl (33.0-37.0); MEAN PLATELET VOLUME 10.6 fl (9.6-12.3); MONO # 0.5 10*3/uL (0.1-1.0); MONO % 5.2 % (3.0-9.0); NEUT # 8.9 10*3/uL (2.3-7.9); NEUT % 85.1 % (47.0-73.0); PLATELET COUNT AUTOMATED 218 10*3/uL (130-400); RED BLOOD COUNT 4.38 10*6/uL (4.50-5.90); RED CELL DISTRI WIDTH 15.7 % (0-14.5); WHITE BLOOD COUNT 10.4 10*3/uL (4.8-10.8)
[2023-03-17 14:19] LABS: ALKALINE PHOSPHATASE 70 U/L (46-116); BUN 12 mg/dl (9-23); CHLORIDE 109 mmol/L (98-107); POTASSIUM 3.9 mmol/L (3.4-5.1); SGPT/ALT 15 U/L (5-49); TOTAL PROTEIN 6.8 gm/dL (6.0-8.0)
== END 2023-03-17 22:53 | disposition short-term general hospital (02) ==
LOC: ED 13:21
PROVIDERS: Nurse Practitioner
DX: I21.4 Non-ST elevation (NSTEMI) myocardial infarction (principal); I10 Essential (primary) hypertension; F03.90 Unspecified dementia, unspecified severity, without behavioral disturbance, psychotic disturbance, mood disturbance, and anxiety; M19.90 Unspecified osteoarthritis, unspecified site; Z90.89 Acquired absence of other organs; Z98.890 Other specified postprocedural states